=== PATIENT | female | born 1985 | race Caucasian/White ===

== ENCOUNTER → 2024-01-25 10:22 | Outpatient (REF) | payer OTHER, SELFPAY | LOC: PNTC 10:22 | PROVIDERS: ATTENDING PHYSICIAN Obstetrics & Gynecology | DX: O36.80X0 Pregnancy with inconclusive fetal viability, not applicable or unspecified (principal) | CPT/HCPCS: 76801; 76817 ==

== ENCOUNTER → 2024-02-05 13:22 | Outpatient (REF) | payer OTHER, SELFPAY | LOC: PNTC 13:22 | PROVIDERS: ATTENDING PHYSICIAN Obstetrics & Gynecology | DX: Z34.90 Encounter for supervision of normal pregnancy, unspecified, unspecified trimester (principal); O36.80X0 Pregnancy with inconclusive fetal viability, not applicable or unspecified | CPT/HCPCS: 76815; 76817 ==

== ENCOUNTER → 2024-02-08 23:10 | Day surgery (SDC) | payer OTHER, SELFPAY ==
--- NOTE | 2024-02-08 18:07 | ED.GENMED ---
ED Provider Triage
<Oma Bryant PA-C - Last Filed: 02/08/24 18:10>
-
Patient seen by provider in Triage?: Seen in Triage
Attestation: A medical screening examination has been initiated by a qualified medical provider. Based on the assessment performed at this time, it has been determined that an emergent medical condition may exist and the patient has been informed
that further medical evaluation and possible additional diagnostic testing may be needed.
HPI: 38yoF here with heavy vaginal bleeding x 1 day with severe pelvic pain. US 4 days ago showed a nonviable . Using 2 pads/hour. Currently 11 weeks gestation.
GENERAL: Alert , in no apparent distress
EYE: No visual abnormalities.
NECK: Trachea midline
ENT: No visible abnormalities.
LUNGS: No acute respiratory distress
NEUROLOGICAL: Alert and oriented
SKIN: Skin intact. No visible changes.
MUSCULOSKELETAL: Moving extremities normally
PSYCH: Normal and appropriate interaction.
This is a medical evaluation conducted in person to initiate diagnostic evaluation and provide initial therapeutics. Please see further documentation by the treating clinician.
Appears uncomfortable in triage. Labs ordered.
History of Present Illness
<Oma Bryant PA-C - Last Filed: 02/08/24 18:10>
General
Chief Complaint: Problems
Time Seen by Provider: 02/08/24 19:05
<Angelia Almanzar MD - Last Filed: 02/08/24 22:59>
General
Source: patient and spouse
Exam Limitations: none
Nursing documentation reviewed up to this point in time: agreed with
History of Present Illness
History of Present Illness:
Patient is a who is about 11 weeks with a last menstrual period of November 27, 2023. Patient reports that she has been experiencing vaginal bleeding for about 5 days. Patient reports that today, the bleeding became much heavier and
she is experiencing severe contractions in her pelvis and back. Patient describes the bleeding as passing large clots. She denies chest pain or shortness of breath. Patient reports she notified her powder worker tnt of her symptoms and was told to go
to the emergency department. Patient reports she is followed by Dr. Wolfe. Upon checking medical records, patient is noted to have a blood type of O+ with antibody screen negative
Past History
<Oma Bryant PA-C - Last Filed: 02/08/24 18:10>
Past History
ED Past Medical History: Asthma and Other (Several miscarriages, Gene mutation, Migraines)
ED Past Surgical History: (X2), Gynecological (D&E), Orthopedic (bone surgery on foot) and Tonsilectomy
Social History
Tobacco: Non-smoker
Alcohol: None
Drug: None
Personal:
Living: with family
Employment: Employed
Family History
Family History: Other
Review of Systems
<Angelia Almanzar MD - Last Filed: 02/08/24 22:59>
Review of Systems
Allergies reviewed?: Yes
All Other Systems: ROS reviewed and negative except as documented in HPI and ROS
Constitutional: Reports no symptoms
EENT: Reports no symptoms
Respiratory: Reports no symptoms
Cardiac: Reports no symptoms
ABD/GI: Reports nausea
: Reports bleeding and other (Severe pelvic pain)
Musculoskeletal: Reports back pain
Neurological: Reports no symptoms
Endocrine: Reports no symptoms
Hematologic/Lymphatic: Reports no symptoms
Psychiatric: Reports no symptoms
Phy Exam
<Angelia Almanzar MD - Last Filed: 02/08/24 22:59>
Physical Exam
Physical Exam:
Physical Exam
General: Patient appears extremely uncomfortable but is conversational. Well-perfused
Neck: supple. no meningeal signs. normal psoterior pharynx
Heart: s1/s2 regular rate and rhythm, no murmur. equal radial pulses.
Lungs: no acute respiratory distress. clear bilaterally
Abdomen: Mild lower abdominal tenderness. Normal bowel sounds.
Neuro: alert and oriented. no focal neurological deficits
Skin: no rash
Psychiatric: well kept. interactive and cooperative
Extremities: no edema. no calf tenderness. negative homans. good distal pulses
Course
<Oma Bryant PA-C - Last Filed: 02/08/24 18:10>
Orders/Labs/Results
Orders:
Orders
02/08/24
US Pelvis Transvaginal Only Urgent
Reason For Exam: BLEEDING , MISCARRIAGE
02/08/24 19:07
Beta HCG Quantitative Urgent
Is this a screen?: No
Complete Blood Count/With Diff Urgent
Comprehensive Metabolic Panel Urgent
02/08/24 19:11
Morphine Sulfate 4 mg IV NOW STA
Ondansetron Injectable [Zofran] 4 mg IV NOW STA
02/08/24 19:16
0.9% Sodium Chloride 1000 ml [Nss] 1,000 ml IV BOLUS
02/08/24 19:27
HYDROmorphone [Dilaudid] 0.5 mg IV NOW STA
02/08/24 19:56
US Pnt Transvag Urgent
Reason for Exam: 11 weeks preg, heavy bleeding, clots
02/08/24 22:18
HYDROmorphone [Dilaudid] 1 mg IV NOW STA
02/08/24 22:19
Consult COMMERCIAL REAL ESTATE LENDER [COMMERCIAL REAL ESTATE LENDER CONSULT] Urgent
Consulting Provider: Sindhu Aguilar
Was physician already notified: Yes
Reason for consult: incomplete miscarriage
02/08/24 22:41
HYDROmorphone [Dilaudid] 0.25 mg IV PACU-Q5MPRN PRN
HYDROmorphone [Dilaudid] 0.5 mg IV PACU-Q5MPRN PRN
Meperidine [Demerol] 12.5 mg IV PACU-Q5MPRN PRN
Ondansetron Injectable [Zofran] 4 mg IV PACU-ONCEPRN PRN
Prochlorperazine [Compazine] 5 mg IV PACU-ONCEPRN PRN
Notify MD As Directed
Notify physician if: for SDS patients with known or suspected sleep obstructive sleep apnea, monitor in the
PACU.
Notify MD for any apneic/desaturation episodes
O2 Therapy [RESP] Urgent
Titrate/Wean O2 to maintain O2 sat greater than (%): 92
Special Instructions: -Provide supplemental oxygen to achieve O2 sat of 92% or greater.
-After 15 min, may wean O2 and discontinue if patient is able to maintain O2 sat of 92%
or greater during recovery period.
If patient is a discharge home, without oxygen therapy, notify anestheiologist if
unable to maintain O2 SAT of 92% or greater on room air for MD clearance.
02/08/24 22:42
Doxycycline Hyclate [Vibramycin] 100 mg 0.9% Sodium Chloride 250 ml [Nss] 250 ml IV NOW
02/08/24 22:43
Dexamethasone Sod Phosphate [Decadron] 20 mg .ROUTE .STK-MED ONE
Lidocaine HCl/Pf [Xylocaine-Mpf 1% Vial] 50 mg .ROUTE .STK-MED ONE
Ondansetron Injectable [Zofran] 4 mg .ROUTE .STK-MED ONE
Propofol [Diprivan] 20 ml .ROUTE .STK-MED
Rocuronium Wilsey [Rocuronium] 50 mg .ROUTE .STK-MED ONE
02/08/24 22:45
Normosol (Mult Electrolytes) [Normosol-R/Plasmalyte-A] 1,000 ml IV PER PROTOCOL
02/08/24 23:00
Flush (0.9% Sodium Chloride) [Flush (Nss)] See Dose Instructions IV PER PROTOCOL
02/09/24 Breakfast
NPO
Allow oral meds: Yes
Allow clear liquids: No
Abnormal Lab Results
02/08/24
19:07
RBC 3.97 L 10^6/uL
(4.20-5.40)
Hgb 11.2 L g/dL
(12.0-16.0)
Hct 33.6 L %
(37.0-47.0)
Abs Immat Gran (auto) 0.1 H 10^3/uL
(0-0.05)
Absolute Neuts (auto) 8.5 H 10^3/uL
(1.4-6.5)
Absolute Lymphs (auto) 1.1 L 10^3/uL
(1.2-3.4)
Neutrophils % 84.3 H %
(42.2-75.2)
Lymphocytes % 10.9 L %
(20.5-51.1)
Glucose 115 H mg/dl
(70-99)
Total Bilirubin < 0.1 L mg/dl
(0.2-1.3)
Total Protein 6.2 L g/dl
(6.3-8.2)
02/08/24 19:07
02/08/24 19:07
Vital Signs
Initial and Last Documented VS:
Initial Vital Signs
Temp Pulse Resp Pulse Ox
98.0 F 86 18 100
02/08/24 18:04 02/08/24 18:04 02/08/24 18:04 02/08/24 18:04
Last Documented Vital Signs
Temp Pulse Resp BP Pulse Ox
98.0 F 69 12 158/80 100
02/08/24 18:04 02/08/24 20:00 02/08/24 20:00 02/08/24 20:00 02/08/24 18:04
<Angelia Almanzar MD - Last Filed: 02/08/24 22:59>
Orders/Labs/Results
Orders:
Orders
02/08/24
US Pelvis Transvaginal Only Urgent
Reason For Exam: BLEEDING , MISCARRIAGE
02/08/24 19:07
Beta HCG Quantitative Urgent
Is this a screen?: No
Complete Blood Count/With Diff Urgent
Comprehensive Metabolic Panel Urgent
02/08/24 19:11
Morphine Sulfate 4 mg IV NOW STA
Ondansetron Injectable [Zofran] 4 mg IV NOW STA
02/08/24 19:16
0.9% Sodium Chloride 1000 ml [Nss] 1,000 ml IV BOLUS
02/08/24 19:27
HYDROmorphone [Dilaudid] 0.5 mg IV NOW STA
02/08/24 19:56
US Pnt Transvag Urgent
Reason for Exam: 11 weeks preg, heavy bleeding, clots
02/08/24 22:18
HYDROmorphone [Dilaudid] 1 mg IV NOW STA
02/08/24 22:19
Consult COMMERCIAL REAL ESTATE LENDER [COMMERCIAL REAL ESTATE LENDER CONSULT] Urgent
Consulting Provider: Sindhu Aguilar
Was physician already notified: Yes
Reason for consult: incomplete miscarriage
02/08/24 22:41
HYDROmorphone [Dilaudid] 0.25 mg IV PACU-Q5MPRN PRN
HYDROmorphone [Dilaudid] 0.5 mg IV PACU-Q5MPRN PRN
Meperidine [Demerol] 12.5 mg IV PACU-Q5MPRN PRN
Ondansetron Injectable [Zofran] 4 mg IV PACU-ONCEPRN PRN
Prochlorperazine [Compazine] 5 mg IV PACU-ONCEPRN PRN
Notify MD As Directed
Notify physician if: for SDS patients with known or suspected sleep obstructive sleep apnea, monitor in the
PACU.
Notify MD for any apneic/desaturation episodes
O2 Therapy [RESP] Urgent
Titrate/Wean O2 to maintain O2 sat greater than (%): 92
Special Instructions: -Provide supplemental oxygen to achieve O2 sat of 92% or greater.
-After 15 min, may wean O2 and discontinue if patient is able to maintain O2 sat of 92%
or greater during recovery period.
If patient is a discharge home, without oxygen therapy, notify anestheiologist if
unable to maintain O2 SAT of 92% or greater on room air for MD clearance.
02/08/24 22:42
Doxycycline Hyclate [Vibramycin] 100 mg 0.9% Sodium Chloride 250 ml [Nss] 250 ml IV NOW
02/08/24 22:43
Dexamethasone Sod Phosphate [Decadron] 20 mg .ROUTE .STK-MED ONE
Lidocaine HCl/Pf [Xylocaine-Mpf 1% Vial] 50 mg .ROUTE .STK-MED ONE
Ondansetron Injectable [Zofran] 4 mg .ROUTE .STK-MED ONE
Propofol [Diprivan] 20 ml .ROUTE .STK-MED
Rocuronium Wilsey [Rocuronium] 50 mg .ROUTE .STK-MED ONE
02/08/24 22:45
Normosol (Mult Electrolytes) [Normosol-R/Plasmalyte-A] 1,000 ml IV PER PROTOCOL
02/08/24 23:00
Flush (0.9% Sodium Chloride) [Flush (Nss)] See Dose Instructions IV PER PROTOCOL
02/09/24 Breakfast
NPO
Allow oral meds: Yes
Allow clear liquids: No
Abnormal Lab Results
02/08/24
19:07
RBC 3.97 L 10^6/uL
(4.20-5.40)
Hgb 11.2 L g/dL
(12.0-16.0)
Hct 33.6 L %
(37.0-47.0)
Abs Immat Gran (auto) 0.1 H 10^3/uL
(0-0.05)
Absolute Neuts (auto) 8.5 H 10^3/uL
(1.4-6.5)
Absolute Lymphs (auto) 1.1 L 10^3/uL
(1.2-3.4)
Neutrophils % 84.3 H %
(42.2-75.2)
Lymphocytes % 10.9 L %
(20.5-51.1)
Glucose 115 H mg/dl
(70-99)
Total Bilirubin < 0.1 L mg/dl
(0.2-1.3)
Total Protein 6.2 L g/dl
(6.3-8.2)
02/08/24 19:07
02/08/24 19:07
Vital Signs
Initial and Last Documented VS:
Initial Vital Signs
Temp Pulse Resp Pulse Ox
98.0 F 86 18 100
02/08/24 18:04 02/08/24 18:04 02/08/24 18:04 02/08/24 18:04
Last Documented Vital Signs
Temp Pulse Resp BP Pulse Ox
98.0 F 69 12 158/80 100
02/08/24 18:04 02/08/24 20:00 02/08/24 20:00 02/08/24 20:00 02/08/24 18:04
Information
Weeks gestation: N/A
Location: N/A
<Angelia Almanzar MD - Last Filed: 02/08/24 22:59>
MDM/Problems Addressed
Differential Diagnosis Includes:
Threatened , complete , incomplete ,
MDM/Problems Addressed:
Patient presents with acute severe pelvic pain and vaginal bleeding
Chronic conditions affecting care:
Asthma
Acute Exacerbation and/or Progression of Chronic Illness:
Patient is breathing comfortably. I do not feel that patient is having acute exacerbation of her chronic asthma
<Angelia Almanzar MD - Last Filed: 02/08/24 22:59>
*Radiology
Radiology exam reviewed: radiology read reviewed
*Pulse Oximetry
Patient hypoxic: no
*EKG
Interpreted by ED Provider?: NA
*Intellectual Property Lawyer Interpretation
Rate: normal
Interpretation: normal
Rhythm: sinus
*Critical Care Note
Total Time (30-74mins, 75-104mins- exclusive of procedures): 37 min
comment:
37 minutes critical care given to patient including frequent reassessments of her pain, vaginal bleeding, counseling the patient and her as well as discussing the case with OB
Data Reviewed
Review of Other/Old Records Reveals: Labs (Patient's blood type is O+ antibody screen negative, found on 02/19/2020)
Source: patient
<Angelia Almanzar MD - Last Filed: 02/08/24 22:59>
Patient Management
Social determinants of health affecting care: Living situation and Poor social support
Discussion with other providers: Other (Case discussed with Dr. Avendaño who agreed to evaluate the patient for possible D&C)
ED Attending Note
<Oma Bryant PA-C - Last Filed: 02/08/24 18:10>
-
Portions of this chart may have been created with voice recognition software.� Occasional wrong word or��sound alike� substitutions may have occurred due to the inherent limitations of voice recognition software.
Discharge Plan
Departure
Patient Disposition: OR
Date of Disposition: 02/08/24
Time of Disposition: 22:58
Admit to: OR
Admit to doctor: DeFeur
Presentation/result/management discussed w/ accepting MD/DO: Defeur
Patient with high blood pressure during this ER visit?: No
Condition: Fair
Discharge Problem:
Incomplete
Prescriptions:
No Action
Tablet
1 tab PO DAILY
Referrals:
[facility], [Other]
Juan Felix, [Family Provider] -
Interventions
Interventions:
*Risk Screen - Suicide Last Done: 02/08/24 18:04
*General Assessment Last Done: 02/08/24 18:56
*Neglect/Abuse Screening Last Done: 02/08/24 18:04
ED- Fall Risk Assessment Last Done: 02/08/24 18:56
*ED COVID-19 Vaccine History Last Done: 02/08/24 18:56
ED-Female Genitourinary Assessment Last Done: 02/08/24 18:56
Discharge Date and Time
Print Language: CZECH
[2024-02-08 18:09] VITALS: BP 117/74
[2024-02-08] MEDS: ZOFRAN 4 MG IV (19:15)
[2024-02-08] MEDS: MORPHINE SULFATE 4 MG IV (19:16)
[2024-02-08] MEDS: NSS 1000 IV (19:19)
[2024-02-08 19:21] LABS: % Basophils 0.2 % (0-2); % Eosinophils 0.3 % (0-6); % Immature Granulocytes 0.5 % (0-0.5); % Lymphocytes 10.9 % (20.5-51.1); % Monocytes 3.8 % (1.7-9.3); % Neutrophils 84.3 % (42.2-75.2); Absolute Immature Granulocytes 0.1 10^3/uL (0-0.05); Absolute Lymphocytes 1.1 10^3/uL (1.2-3.4); Absolute Monocytes 0.4 10^3/uL (0.1-0.6); Absolute Neutrophils 8.5 10^3/uL (1.4-6.5); Hematocrit 33.6 % (37.0-47.0); Hemoglobin 11.2 g/dL (12.0-16.0); Mean Corp Hgb Conc. 33.3 g/dL (33.0-37.0); Mean Corpuscular Hgb 28.2 pg (27.0-31.0); Mean Corpuscular Volume 84.6 fL (81.0-99.0); Mean Platelet Volume 9.9 fL (7.4-10.4); Nucleated Red Blood Cells % 0 %; Platelet Count 207 10^3/uL (130-400); Red Blood Cell Count 3.97 10^6/uL (4.20-5.40); Red Cell Dist. Width 13.1 % (11.5-14.5); White Blood Cell Count 10.1 10^3/uL (4.8-10.8)
[2024-02-08 19:26] VITALS: BP 166/79
[2024-02-08] MEDS: DILAUDID 0.5 MG IV (19:32)
[2024-02-08 19:39] LABS: ALT (SGPT) 24 U/L (0-35); AST (SGOT) 21 U/L (14-36); Albumin 3.8 g/dl (3.5-5.0); Alkaline Phosphatase 58 U/L (38-126); Blood Urea Nitrogen 13 mg/dl (7-17); Calcium 9.1 mg/dl (8.4-10.2); Carbon Dioxide 24 mmol/L (22-30); Chloride 101 mmol/L (98-107); Glucose 115 mg/dl (70-99); Potassium 3.9 mmol/L (3.5-5.1); Sodium 137 mmol/L (135-145); Total Bilirubin < 0.1 mg/dl (0.2-1.3); Total Protein 6.2 g/dl (6.3-8.2); eGFR > 60.00
[2024-02-08 20:00] VITALS: BP 158/80
[2024-02-08] MEDS: DILAUDID 1 MG IV (22:27)
--- NOTE | 2024-02-08 23:07 | HP.FOC2 ---
Focused History & Physical
Chief Complaint
HPI:
Chief Complaint: Heavy vaginal bleeding and pelvic pain
HPI / Indication for Planned Procedure:
38yo who was diagnosed with a 6 week Missed AB on 02/05/24 called the wafer fabrication operator physician earlier this afternoon due to increased VB, cramping, Headache, dry mouth. She states she started bleeding last night, but then it got better but this
afternoon it returned heavier with a lot of pain, not responding to 600mg of ibuprofen. She denies f/c. While in the ER her H/H was 11.2/33.6 and she had an US that showed a thickened EMS 18mm, heterogeneous c/w retained POC. Patient has needed IV
pain medication while in the ER and states her bleeding is getting better but still passing clots so we discussed proceeding with a D&E for incomplete
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
Relevant Social History: Negative and Tobacco Use
Relevant Family History: Positive for (Paternal Aunt- Breast CA)
Relevant Past Surgical History: Positive for (C/S x3, R. foot surgery, tonsillectomy, [place] Teeth, D&E)
Review of Systems
Review of Pertinent Systems: All Systems Negative Except for the Following Positives (AGUILERA, Pelvic pain)
Medication
See Medication form for detailed medications: Yes
Medication List (including Herbals & OTC):
Tablet 1 tab PO DAILY Supplement 01/09/20
Medications Reviewed: Yes
Allergies and Reactions
Patient has Allergies: Yes
Noted Allergies and Reactions:
Allergy/AdvReac Type Severity Reaction Status Date / Time
amoxicillin [Amoxicillin] Allergy Rash Verified 08/06/22 18:04
erythromycin ethylsuccinate Allergy Rash Verified 08/06/22 18:04
[From Pediazole]
Sulfa (Sulfonamide Allergy Rash Verified 08/06/22 18:04
Antibiotics)
sulfisoxazole acetyl Allergy Rash Verified 08/06/22 18:04
[From Pediazole]
Pertinent Physical Exam
All Other Systems: Negative
Lungs: Normal
Heart: Normal
Abdomen: Normal
Other: Pelvic Deferred by me
Diagnosis / Assessment
38yo with incomplete AB
Plan / Procedure
Discussed proceeding with surgical intervention D&E. risks of the procedure including bleeding, infection, injury uterus and surrounding structures. Need for additional procedures, incomplete evacuation were discussed. post-procedure expectations
also reviewed. Consents were signed. Patient is rh+ so not a rhogam candidate
Anesthesia/Sedation to be done by Anesthesia Provider: Yes
[2024-02-09] VITALS (7 sets, daily range): BP systolic 114–168; BP diastolic 63–80
== END ==
LOC: EMR 18:02 → PACU 23:10
PROVIDERS: Physician Assistant; ATTENDING PHYSICIAN Obstetrics & Gynecology; EMERGENCY PHYSICIAN Emergency Medicine; FAMILY PHYSICIAN Family Medicine
DX: O03.4 Incomplete spontaneous abortion without complication (principal); O09.521 Supervision of elderly multigravida, first trimester; Z3A.01 Less than 8 weeks gestation of pregnancy
CPT/HCPCS: 59812; 88305; 76830; 80053; 84702; 85025; 96361; 96374; 96375; 96376; 99291

== ENCOUNTER → 2024-03-22 15:00 | Outpatient (REF) | payer OTHER, SELFPAY | LOC: HWRCS 15:00 | PROVIDERS: ATTENDING PHYSICIAN Family Medicine | DX: R01.1 Cardiac murmur, unspecified (principal) | CPT/HCPCS: 93306 ==

== ENCOUNTER → 2024-05-13 14:58 | Outpatient (REF) | payer OTHER, SELFPAY | LOC: RAD 14:58 | PROVIDERS: ATTENDING PHYSICIAN Family Medicine | DX: M79.604 Pain in right leg (principal) | CPT/HCPCS: 93971 ==